=== PATIENT | female | born 1945 ===

== ENCOUNTER 2019-02-11 08:50 | Outpatient (CLI) | payer MEDICARE, OTHER, SELFPAY | END 2019-02-11 09:10 | PROVIDERS: PCP Nurse Practitioner Family; Visit Provider Student in an Organized Health Care Education/Training Program | DX: I10 Essential (primary) hypertension (principal); I47.1 Supraventricular tachycardia; Z86.79 Personal history of other diseases of the circulatory system; Z98.890 Other specified postprocedural states | CPT/HCPCS: 99202; 99204; 93005; 93010 ==

== ENCOUNTER → 2024-10-07 13:08 | Outpatient (BNVA) | payer MEDICARE, OTHER, SELFPAY | PROVIDERS: Visit Provider Psychiatry & Neurology Neurology | DX: F39 Unspecified mood [affective] disorder (principal); F03.90 Unspecified dementia, unspecified severity, without behavioral disturbance, psychotic disturbance, mood disturbance, and anxiety | CPT/HCPCS: 99205; G2212 ==